=== PATIENT | male | born 1955 | race Caucasian/White ===

== ENCOUNTER 2020-03-04 18:00 | Outpatient (RCR) | payer OTHER, SELFPAY ==
[2019-12-26 08:59] VITALS: PULSE 79; RESP 14; TEMP 37; O2SAT 98
--- NOTE | 2019-12-26 09:09 | PCCPR ---
Molina has h/o some low back discomfort he believes arthritis to L3-5. He wears a supportive brace when walking longer distances or standing. He does not have that with him today and currently no pain.
[2019-12-26 09:51] VITALS: PULSE 79
--- NOTE | 2019-12-26 09:52 | PCCPR ---
Hands itching on orientation Molina arrived 0800 discussing with out Clinical coordinator his hands were feeling a little itchy. His ACTOS was recently substituted with a different chemical compound. He has several allergies. He reported to his PCP. During orientation his eye lids looked a little puffy.
[2020-02-28 19:18] LABS: Glucose Point of Care 121 (65-105)
== END 2020-03-18 15:37 | disposition home or self-care (01) ==
LOC: ANHCPREHAB 18:00
DX: Z95.5 Presence of coronary angioplasty implant and graft (principal)
CPT/HCPCS: 93798

== ENCOUNTER 2021-04-23 00:36 | Day surgery (SDC) | payer OTHER, SELFPAY ==
[2021-04-14 14:47] VITALS: BMI 27.3
[2021-04-23 08:27] VITALS: BP 124/74; PULSE 73; RESP 20; TEMP 36.2; O2SAT 97
--- NOTE | 2021-04-23 08:31 | WPDHPUPDATE1 ---
History and Physical Update Update Date/Time: 04/23/21 08:31 History and Physical has been reviewed, including an updated exam of the patient. There are NO changes in the patient's condition. Risks, benefits, and alternatives have been discussed and questions answered. Patient agrees to proceed with procedure.
[2021-04-23] MEDS: LACTATED RINGERS 1,000 ML 150 ML IV CONT (08:40)
--- NOTE | 2021-04-23 08:43 | WPDANESEPPF ---
Anes - Initial Pre Proc Eval Procedure: Operation Date: 04/23/21 09:00 Proposed Procedures p Esophagogastroduodenoscopy - Richard Ayers MD Date/Time: 04/23/21 08:43 Surgeon: Richard Ayers MD Pre Op Diagnosis: GERD Patient Data Age: 65 Gender: M Height: 1.93 m Weight: 104.9 kg Last Vital Signs Temp 97.1 F L 04/23/21 08:27 Pulse 73 04/23/21 08:27 Resp 20 04/23/21 08:27 BP 124/74 04/23/21 08:27 Pulse Ox 97 04/23/21 08:27 Allergies Allergy/AdvReac Type Severity Reaction Status Date / Time crab Allergy Severe Anaphylactic Verified 04/23/21 08:25 Shock bee venom protein (honey bee) Allergy Intermediate Swelling Verified 04/23/21 08:25 levofloxacin Allergy Intermediate rapid Verified 04/23/21 08:25 heartbeat Contrast Media Allergy Intermediate Hives Uncoded 04/23/21 08:25 Home Medications Medication Instructions Recorded Confirmed Type aspirin [Aspir-81] 81 mg PO DAILY 12/26/19 04/14/21 History clopidogrel 75 mg PO DAILY 12/26/19 04/23/21 History losartan 50 mg PO DAILY 12/26/19 04/14/21 History metoprolol succinate 50 mg PO DAILY 12/26/19 04/14/21 History semaglutide [Ozempic] 1 mg SUBCUT WEEKLY 12/26/19 04/14/21 History empagliflozin 25 mg tablet 25 mg PO DAILY 04/03/21 04/14/21 History ergocalciferol (vitamin D2) 50,000 50,000 unit PO WEEKLY tablet 04/03/21 04/14/21 History unit tablet ezetimibe 10 mg tablet 10 mg PO DAILY 04/03/21 04/14/21 History glimepiride 1 mg tablet 1 mg PO BID 04/03/21 04/14/21 History icosapent ethyl 1 gram capsule 2 g PO BID 04/03/21 04/14/21 History pantoprazole 40 mg tablet,delayed 40 mg PO QAM 04/03/21 04/14/21 History release rosuvastatin 40 mg tablet 40 mg PO DAILY 04/03/21 04/14/21 History tramadol 50 mg tablet 50 mg PO Q6H PRN 04/03/21 04/14/21 History ergocalciferol (vitamin D2) 1,250 mcg PO WEEKLY 04/14/21 04/14/21 History [Vitamin D2] metformin 1,000 mg PO BID 04/14/21 04/14/21 History multivitamin [Men's Multi-Vitamin] 1 tablet PO DAILY 04/14/21 04/14/21 History Patient hx anesthesia problems: none Family hx anesthesia problems: none Results Review: All pre-operative results and documents have been reviewed as part of the pre-operative evaluation. [facility] Past Medical History Medical History (Updated 04/03/21 @ 13:36 by Richard Ayers MD) CAD (coronary artery disease) Diabetes mellitus HTN (hypertension) with goal to be determined Family History Family History Sibling Diabetes mellitus Legal Guardian No problems noted. Father Hypertension Mother Hypertension Social History Social History Smoking status: Never smoker Alcohol intake: former Substance use: never Substance use type: does not use Living arrangements: with family Spiritual care concerns: No Anes - Eval Final PreProcedure Day of Procedure 04/23/21 08:43 Patient weight: overweight Heart: regular rate and rhythm Lungs: clear to auscultation Airway: Mallampati scale class II Neurological: alert and oriented Last oral intake: >/= 8 hours ASA classification: III Emergent: no Anesthetic plan: proceed Anesthesia type and monitoring: general GIVS and standard monitoring Results Review: All pre-operative results and documents have been reviewed as part of the pre-operative evaluation. Informed Consent: The patient's anesthetic plan and its attendant risks and benefits were discussed with the patient/family/POA. Questions were solicited and answers provided to the satisfaction of the patient/family/POA.
[2021-04-23 08:56] VITALS: BP 88/51; PULSE 71; RESP 18; O2SAT 100
[2021-04-23 09:06] VITALS: BP 94/59; PULSE 74; RESP 14; O2SAT 99
[2021-04-23 09:16] VITALS: BP 107/68; PULSE 73; RESP 16; O2SAT 100
== END 2021-04-23 09:24 | disposition home or self-care (01) ==
PROVIDERS: PCP Nurse Practitioner; Visit Provider Internal Medicine Gastroenterology
PROC: 0DJ08ZZ Inspection of Upper Intestinal Tract, Via Natural or Artificial Opening Endoscopic (ICD-10-PCS; CPT 43235; principal; 2021-04-23 09:00)
DX: K21.9 Gastro-esophageal reflux disease without esophagitis (principal); I25.10 Atherosclerotic heart disease of native coronary artery without angina pectoris; I48.20 Chronic atrial fibrillation, unspecified; E11.9 Type 2 diabetes mellitus without complications; I10 Essential (primary) hypertension; Z95.5 Presence of coronary angioplasty implant and graft; Z86.73 Personal history of transient ischemic attack (TIA), and cerebral infarction without residual deficits; Z79.01 Long term (current) use of anticoagulants
CPT/HCPCS: 43239; 88305; J2704; J7120

== ENCOUNTER 2021-12-17 00:08 | Day surgery (SDC) | payer OTHER, SELFPAY ==
[2021-11-27 14:13] VITALS: BMI 29.2
[2021-12-17 06:48] VITALS: BP 111/71; PULSE 67; RESP 16; TEMP 36.2; O2SAT 98; BMI 29.5
[2021-12-17] MEDS: LACTATED RINGERS 1,000 ML 150 ML IV CONT (07:00)
[2021-12-17 07:03] LABS: Glucose Point of Care 154 mg/dl (65-105)
[2021-12-17 07:18] LABS: Glucose Point of Care 136 mg/dl (65-105)
--- NOTE | 2021-12-17 07:32 | SUR.PREOP ---
Reported to Dr. Pritchett that pt had taken his Eliquis yesterday. Per Dr. Pritchett ok to proceed with procedure.
--- NOTE | 2021-12-17 07:53 | WPDANESEPPF ---
Anes - Initial Pre Proc Eval Procedure: Operation Date: 12/17/21 08:00 Proposed Procedures p Colonoscopy - Richard Ayers MD s [facility] Hemorrhoid Treatment - Richard Ayers MD Date/Time: 12/17/21 07:53 Surgeon: Richard Ayers MD Pre Op Diagnosis: hemorrhoids, blood in stool Patient Data Age: 66 Gender: M Height: 1.93 m Weight: 109.8 kg Last Vital Signs Temp 97.2 F L 12/17/21 06:48 Pulse 67 12/17/21 06:48 Resp 16 12/17/21 06:48 BP 111/71 12/17/21 06:48 Pulse Ox 98 12/17/21 06:48 O2 Del Method Room Air 12/17/21 06:48 Allergies Allergy/AdvReac Type Severity Reaction Status Date / Time bee venom protein (honey bee) Allergy Severe Anaphylactic Verified 12/17/21 06:47 Shock crab Allergy Severe Anaphylactic Verified 12/17/21 06:47 Shock levofloxacin Allergy Intermediate rapid Verified 12/17/21 06:47 heartbeat Contrast Media Allergy Severe Anaphylactic Uncoded 12/17/21 06:47 Shock Home Medications Medication Instructions Recorded Confirmed Type aspirin 81 mg tablet,delayed 81 mg PO DAILY 12/26/19 12/17/21 History release (Aspir-) losartan 50 mg tablet 50 mg PO DAILY 12/26/19 12/17/21 History metoprolol succinate 50 mg 50 mg PO DAILY 12/26/19 12/17/21 History tablet,extended release 24 hr semaglutide 0.25 mg or 0.5 mg (2 1 mg subcut WEEKLY 12/26/19 12/17/21 History mg/1.5 mL) subcutaneous pen injector (Ozempic) empagliflozin 25 mg tablet 25 mg PO DAILY 04/03/21 12/17/21 History (Jardiance) ergocalciferol (vitamin D2) 50,000 50,000 unit PO WEEKLY 04/03/21 12/17/21 History unit tablet ezetimibe 10 mg tablet 10 mg PO DAILY 04/03/21 12/17/21 History icosapent ethyl 1 gram capsule 2 g PO BID 04/03/21 12/17/21 History (Vascepa) pantoprazole 40 mg tablet,delayed 40 mg PO QAM 04/03/21 12/17/21 History release (Protonix) rosuvastatin 40 mg tablet 40 mg PO DAILY 04/03/21 12/17/21 History tramadol 50 mg tablet 50 mg PO Q6H PRN Pain 04/03/21 12/17/21 History multivitamin 1 tablet PO DAILY 04/14/21 12/17/21 History apixaban 5 mg tablet (Eliquis) 5 mg PO BID 10/30/21 12/17/21 History albuterol sulfate 90 mcg/actuation 1 puff inhalation Q4H PRN 11/27/21 12/17/21 History aerosol inhaler Shortness Of Breath Or Wheezing gabapentin 300 mg capsule 300 mg PO BID 11/27/21 12/17/21 History glimepiride 2 mg tablet 6 mg PO DAILY 11/27/21 12/17/21 History Laboratory Tests 12/17/21 12/17/21 06:55 07:15 POC Capillary Glucose 154 mg/dl H mg/dl 136 mg/dl H mg/dl (65-105) (65-105) Patient hx anesthesia problems: none Family hx anesthesia problems: none Results Review: All pre-operative results and documents have been reviewed as part of the pre-operative evaluation. [facility] Past Medical History Medical History (Updated 10/30/21 @ 09:11 by Richard Ayers MD) CAD (coronary artery disease) Diabetes mellitus Hemorrhoids with complication HTN (hypertension) with goal to be determined Family History Family History Sibling Diabetes mellitus Legal Guardian No problems noted. Father Hypertension Mother Hypertension Social History Social History Smoking status: Never smoker Alcohol intake: current Substance use: never Substance use type: does not use Living arrangements: with family Spiritual care concerns: No Anes - Eval Final PreProcedure Day of Procedure 12/17/21 07:53 Patient weight: normal Heart: regular rate and rhythm Lungs: clear to auscultation Airway: Mallampati scale class II Neurological: alert and oriented Last oral intake: >/= 8 hours ASA classification: III Emergent: no Anesthetic plan: proceed Anesthesia type and monitoring: general GIVS and standard monitoring Results Review: All pre-operative results and documents have b
--- NOTE | 2021-12-17 08:11 | PM.HPGS ---
History of Present Illness History of Present Illness Consent: Risks, benefits, and alternatives have been discussed and questions answered. Patient agrees to proceed with procedure. Chief complaint: hemorrhoids, blood in stool Narrative: Molina Coats is a 66 year old male here for irc and colonoscopy, almost 2 months of intermittent rectal bleeding after BM, most of the time only scant blood after wiping but one time saw large amount of brb in toilet. Had colonoscopy 2019, only medium size internal hemorrhoids Review of Systems Constitutional: Constitutional: Denies headache(s) and Denies weakness Eyes: Eyes: Denies blurry vision ENT: Reports Normal hearing present, Denies headache(s) and Denies neck pain Cardiovascular: Cardiovascular: Denies chest pain and Denies dyspnea Respiratory: Respiratory: Denies dyspnea Gastrointestinal: Gastrointestinal: Reports no additional gastrointestinal complaints Genitourinary: Genitourinary: Denies dysuria Musculoskeletal: Musculoskeletal: Denies neck pain Integumentary/Breasts: Skin/Breast: Denies dry skin Neurologic: Reports Normal hearing present, Denies headache(s) and Denies weakness Psychiatric: Psychiatric: Denies anxiety Endocrine: Endocrine: Denies change in body appearance Hematologic/Lymphatic: Hematologic/Lymphatic: Denies easy bleeding Allergic/Immunologic: Allergic/Immunologic: Denies urticaria PMFSH Past Medical History Medical History (Updated 12/17/21 @ 08:12 by Richard Ayers MD) CAD (coronary artery disease) Diabetes mellitus Hemorrhoids with complication HTN (hypertension) with goal to be determined Rectal bleeding Family History Family History Sibling Diabetes mellitus Legal Guardian No problems noted. Father Hypertension Mother Hypertension Social History Social History Smoking status: Never smoker Alcohol intake: current Substance use: never Substance use type: does not use Living arrangements: with family Spiritual care concerns: No Meds Home Medications and Allergies Home Medications Medication Instructions Recorded Confirmed Type aspirin 81 mg tablet,delayed 81 mg PO DAILY 12/26/19 12/17/21 History release (Aspir-) losartan 50 mg tablet 50 mg PO DAILY 12/26/19 12/17/21 History metoprolol succinate 50 mg 50 mg PO DAILY 12/26/19 12/17/21 History tablet,extended release 24 hr semaglutide 0.25 mg or 0.5 mg (2 1 mg subcut WEEKLY 12/26/19 12/17/21 History mg/1.5 mL) subcutaneous pen injector (Ozempic) empagliflozin 25 mg tablet 25 mg PO DAILY 04/03/21 12/17/21 History (Jardiance) ergocalciferol (vitamin D2) 50,000 50,000 unit PO WEEKLY 04/03/21 12/17/21 History unit tablet ezetimibe 10 mg tablet 10 mg PO DAILY 04/03/21 12/17/21 History icosapent ethyl 1 gram capsule 2 g PO BID 04/03/21 12/17/21 History (Vascepa) pantoprazole 40 mg tablet,delayed 40 mg PO QAM 04/03/21 12/17/21 History release (Protonix) rosuvastatin 40 mg tablet 40 mg PO DAILY 04/03/21 12/17/21 History tramadol 50 mg tablet 50 mg PO Q6H PRN Pain 04/03/21 12/17/21 History multivitamin 1 tablet PO DAILY 04/14/21 12/17/21 History apixaban 5 mg tablet (Eliquis) 5 mg PO BID 10/30/21 12/17/21 History albuterol sulfate 90 mcg/actuation 1 puff inhalation Q4H PRN 11/27/21 12/17/21 History aerosol inhaler Shortness Of Breath Or Wheezing gabapentin 300 mg capsule 300 mg PO BID 11/27/21 12/17/21 History glimepiride 2 mg tablet 6 mg PO DAILY 11/27/21 12/17/21 History Allergies Allergy/AdvReac Type Severity Reaction Status Date / Time bee venom protein (honey bee) Allergy Severe Anaphylactic Verified 12/17/21 06:47 Shock crab Allergy Severe Anaphylactic Verified 12/17/21 06:47 Shock levofloxacin Allergy Intermediate rapid Verified 12/17/21 06:47 heartbeat Contrast Medi
--- NOTE | 2021-12-17 08:54 | W.PM.PROC2 ---
Procedure Note - Detailed Date of Procedure 12/17/21 Pre-op Diagnosis hemorrhoids, blood in stool Post-op Diagnosis Same Procedure Performed IRC of internal hemorrhoids Surgeon Richard Ayers MD Indications hemorrhoids Findings same Description of Procedure anoscope revealed grade II internal hemorrhoids located at 4-6 o'clock, no fissure, no bleeding. Then I introduced IRC probe and applied to hemorrhoids 1.5 seconds each time x7
[2021-12-17 08:58] VITALS: BP 90/60; PULSE 65; RESP 25; O2SAT 100
[2021-12-17 09:08] VITALS: BP 98/66; PULSE 65; RESP 17; O2SAT 100
[2021-12-17 09:18] VITALS: BP 102/69; PULSE 64; RESP 15; O2SAT 99
== END 2021-12-17 09:22 | disposition home or self-care (01) ==
PROVIDERS: PCP Nurse Practitioner; Visit Provider Internal Medicine Gastroenterology
PROC: 0DJD8ZZ Inspection of Lower Intestinal Tract, Via Natural or Artificial Opening Endoscopic (ICD-10-PCS; CPT 45378; principal; 2021-12-17 08:00)
PROC: (CPT 46930; 2021-12-17 08:00)
DX: Z12.11 Encounter for screening for malignant neoplasm of colon (principal); K64.1 Second degree hemorrhoids; D12.4 Benign neoplasm of descending colon; I25.10 Atherosclerotic heart disease of native coronary artery without angina pectoris; I10 Essential (primary) hypertension; E11.9 Type 2 diabetes mellitus without complications; Z79.82 Long term (current) use of aspirin; Z79.84 Long term (current) use of oral hypoglycemic drugs; Z79.01 Long term (current) use of anticoagulants; Z79.51 Long term (current) use of inhaled steroids
CPT/HCPCS: 46930; 45385; 82948; 88305; J2370; J2704; J7120

== ENCOUNTER 2022-06-20 16:33 | Emergency (ER) | payer OTHER, SELFPAY ==
--- NOTE | ~2022-06-20 | XR_ITS ---
EXAM: XR ankle RT min 3V DATE: 06/20/2022 16:49 HISTORY: injury, pain medial ankle . COMPARISON: None available. FINDINGS: Normal mineralization. No fracture or dislocation. No lytic or blastic lesion. Degenerativ e change at the tibiotalar joint. Achilles and plantar enthesopathy. No erosion or periosteal change. Soft tissues within normal limits. IMPRESSION: No acute osseous finding in the right ankle. Reviewed, dictated and finalized at location K. 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
[2022-06-20 16:48] VITALS: BP 129/87; PULSE 77; RESP 16; TEMP 36.4; O2SAT 98
--- NOTE | 2022-06-20 17:02 | ED.LOWEXIN ---
HPI - Extremity Injury (Lower) General Chief Complaint: Extremity Injury, Lower Stated Complaint: rt foot injury Time Seen by Provider: 06/20/22 16:50 Source: patient Mode of arrival: ambulatory Limitations: no limitations History of Present Illness HPI Narrative: Patient presents today complaining of right ankle pain. He accidentally struck the right medial ankle with a piece of metal at home 1 hour prior to arrival. Pain has improved since the initial injury. Currently rates his pain 3/10. He has applied ice which has helped. He has not tried any [id number] medication for symptoms prior to arrival. Denies numbness or tingling. Related Data Home Medications Medication Instructions Recorded Confirmed aspirin 81 mg tablet,delayed 81 mg PO DAILY 12/26/19 06/20/22 release (Aspir-) losartan 50 mg tablet 50 mg PO DAILY 12/26/19 06/20/22 metoprolol succinate 50 mg 50 mg PO DAILY 12/26/19 06/20/22 tablet,extended release 24 hr empagliflozin 25 mg tablet 25 mg PO DAILY 04/03/21 06/20/22 (Jardiance) ergocalciferol (vitamin D2) 50,000 50,000 unit PO WEEKLY 04/03/21 06/20/22 unit tablet ezetimibe 10 mg tablet 10 mg PO DAILY 04/03/21 06/20/22 icosapent ethyl 1 gram capsule 2 g PO BID 04/03/21 06/20/22 (Vascepa) rosuvastatin 40 mg tablet 40 mg PO DAILY 04/03/21 06/20/22 tramadol 50 mg tablet 50 mg PO Q6H PRN Pain 04/03/21 06/20/22 multivitamin 1 tablet PO DAILY 04/14/21 06/20/22 apixaban 5 mg tablet (Eliquis) 5 mg PO BID 10/30/21 06/20/22 albuterol sulfate 90 mcg/actuation 1 puff inhalation Q4H PRN 11/27/21 06/20/22 aerosol inhaler Shortness Of Breath Or Wheezing gabapentin 300 mg capsule 300 mg PO BID 11/27/21 06/20/22 glimepiride 2 mg tablet 6 mg PO DAILY 11/27/21 06/20/22 Allergies Allergy/AdvReac Type Severity Reaction Status Date / Time bee venom protein (honey bee) Allergy Severe Anaphylactic Verified 06/20/22 16:42 Shock crab Allergy Severe Anaphylactic Verified 06/20/22 16:42 Shock levofloxacin Allergy Intermediate rapid Verified 06/20/22 16:42 heartbeat Contrast Media Allergy Severe Anaphylactic Uncoded 06/20/22 16:42 Shock Review of Systems Review of Systems: CONSTITUTIONAL: Denies body aches, fever, chills, or sweats. EYES: Denies visual changes, redness, or discharge. ENT: Denies rhinorrhea, congestion, sore throat, or otalgia. CARDIOVASCULAR: Denies chest pain, palpitations, or edema. RESPIRATORY: Denies cough or dyspnea. GASTROINTESTINAL: Denies abdominal pain, nausea, vomiting, or diarrhea. GENITOURINARY: Denies dysuria or hematuria. SKIN: Denies rash, itching, or wounds. MUSCULOSKELETAL: Denies back pain, or myalgia.+ right ankle pain NEUROLOGIC: Denies headache, numbness, tingling, or weakness. PSYCH: Denies depression or anxiety. [facility] Past Medical History Medical History CAD (coronary artery disease) Diabetes mellitus Hemorrhoids with complication HTN (hypertension) with goal to be determined Rectal bleeding Family History Family History Sibling Diabetes mellitus Legal Guardian No problems noted. Father Hypertension Mother Hypertension Social History Social History Smoking status: Never smoker Alcohol intake: current Substance use: never Substance use type: does not use Living arrangements: with family Spiritual care concerns: No Comments At time of signature, I have reviewed and agree with nursing past medical, surgical, social and family history unless otherwise noted. Please see nursing chart for further information. There is no relevant family history pertinent to the presenting complaint Exam Narrative: GENERAL: Well-appearing, well-nourished, and in no acute distress. HEAD: Normocephalic, atraumatic. EYES: EOMI. No redness or drainage.
== END 2022-06-20 17:03 | disposition home or self-care (01) ==
PROVIDERS: Emergency Provider Nurse Practitioner; PCP Nurse Practitioner
DX: S90.01XA Contusion of right ankle, initial encounter (principal); W22.8XXA Striking against or struck by other objects, initial encounter; I25.10 Atherosclerotic heart disease of native coronary artery without angina pectoris; E11.9 Type 2 diabetes mellitus without complications; I10 Essential (primary) hypertension; Z79.82 Long term (current) use of aspirin
CPT/HCPCS: 73610; 99213; G0463

== ENCOUNTER 2023-07-06 08:11 | Emergency (ER) | payer BC, SELFPAY ==
--- NOTE | ~2023-07-06 | XR_ITS ---
EXAMINATION: XR hip RT min 2V DATE: 07/06/2023 08:47 INDICATION: Right hip injury and pain. TECHNIQUE: 2 views of right hip were obtained. COMPARISON: None. FINDINGS: Bone alignment is normal. No fracture. There is mild right hip osteoarthritis. IMPRESSION: 1. Mild right hip osteoarthritis. Reviewed, dictated and finalized at location E. [place] WORKER
--- NOTE | 2023-07-06 08:13 | ED.LOWEXIN ---
HPI - Extremity Injury (Lower) General Chief Complaint: Extremity Injury, Lower Stated Complaint: Injured Hip Source: patient and RN notes reviewed Mode of arrival: ambulatory Limitations: no limitations History of Present Illness HPI Narrative: Patient is a 67-year-old male who [facility] with complaints of right hip pain. Patient states that he twisted his hip while turning and to go through a doorway last night. Patient states that he felt a pop as he was twisting. He complains of right hip tenderness. He has difficulty bearing weight on the right leg. However, he has full range of motion of the hip with slight discomfort. Patient states that he had a similar incident occurred 2 years ago where he injured his left IT band. Patient has past medical history coronary artery disease, diabetes, and stroke. He takes Eliquis daily. Related Data Home Medications Medication Instructions Recorded Confirmed aspirin 81 mg tablet,delayed 81 mg PO DAILY 12/26/19 07/06/23 release (Aspir-) losartan 50 mg tablet 50 mg PO DAILY 12/26/19 07/06/23 metoprolol succinate 50 mg 50 mg PO DAILY 12/26/19 07/06/23 tablet,extended release 24 hr empagliflozin 25 mg tablet 25 mg PO DAILY 04/03/21 07/06/23 (Jardiance) ergocalciferol (vitamin D2) 50,000 50,000 unit PO WEEKLY 04/03/21 07/06/23 unit tablet ezetimibe 10 mg tablet 10 mg PO DAILY 04/03/21 07/06/23 icosapent ethyl 1 gram capsule 2 g PO BID 04/03/21 07/06/23 (Vascepa) rosuvastatin 40 mg tablet 40 mg PO DAILY 04/03/21 07/06/23 multivitamin 1 tablet PO DAILY 04/14/21 07/06/23 apixaban 5 mg tablet (Eliquis) 5 mg PO BID 10/30/21 07/06/23 albuterol sulfate 90 mcg/actuation 1 puff inhalation Q4H PRN 11/27/21 07/06/23 aerosol inhaler Shortness Of Breath Or Wheezing gabapentin 300 mg capsule 300 mg PO BID 11/27/21 07/06/23 glimepiride 2 mg tablet 6 mg PO DAILY 11/27/21 07/06/23 epinephrine 0.3 mg/0.3 mL 0.3 mg IM DIRECTED 07/06/23 07/06/23 injection, auto-injector icosapent ethyl 1 gram capsule 1 g PO DIRECTED 07/06/23 07/06/23 (Vascepa) metformin 1,000 mg tablet 1,000 mg PO DIRECTED 07/06/23 07/06/23 tirzepatide 12.5 mg/0.5 mL mg subcut 07/06/23 subcutaneous pen injector (Mounjaro) Allergies Allergy/AdvReac Type Severity Reaction Status Date / Time bee venom protein (honey bee) Allergy Severe Anaphylactic Verified 07/06/23 08:29 Shock crab Allergy Severe Anaphylactic Verified 07/06/23 08:29 Shock levofloxacin Allergy Intermediate rapid Verified 07/06/23 08:29 heartbeat Contrast Media Allergy Severe Anaphylactic Uncoded 07/06/23 08:29 Shock Review of Systems Review of Systems: CONSTITUTIONAL: Denies fever, chills, or sweats. EYES: Denies visual changes, redness, or discharge. ENT: Denies otalgia and sore throat CARDIOVASCULAR: Denies chest pain, palpitations, or edema. RESPIRATORY: Denies cough or dyspnea. GASTROINTESTINAL: Denies abdominal pain, nausea, vomiting, or diarrhea. GENITOURINARY: Denies dysuria or hematuria. SKIN: Denies rash or itching. MUSCULOSKELETAL: Denies back pain or myalgia. Reports right hip pain. NEUROLOGIC: Denies headache, numbness, or weakness. Pertinent positives per HPI. [facility] Past Medical History Medical History CAD (coronary artery disease) Diabetes mellitus Hemorrhoids with complication HTN (hypertension) with goal to be determined Rectal bleeding Family History Family History Sibling Diabetes mellitus Legal Guardian No problems noted. Father Hypertension Mother Hypertension Social History Social History Smoking status: Never smoker Alcohol intake: current Substance use: never Substance use type: does not use Living arrangements: with family Spiritual care concerns: No C
[2023-07-06 08:29] VITALS: BP 110/69; PULSE 79; RESP 16; TEMP 36.4; O2SAT 99
[2023-07-06 08:32] VITALS: BP 110/69; PULSE 79; RESP 16; TEMP 36.4; O2SAT 99
== END 2023-07-06 09:22 | disposition home or self-care (01) ==
PROVIDERS: Emergency Provider Nurse Practitioner; PCP Nurse Practitioner
DX: S73.101A Unspecified sprain of right hip, initial encounter (principal); X50.9XXA Other and unspecified overexertion or strenuous movements or postures, initial encounter; I25.10 Atherosclerotic heart disease of native coronary artery without angina pectoris; E11.9 Type 2 diabetes mellitus without complications; Z79.84 Long term (current) use of oral hypoglycemic drugs; I10 Essential (primary) hypertension; Z86.73 Personal history of transient ischemic attack (TIA), and cerebral infarction without residual deficits; Z79.01 Long term (current) use of anticoagulants; Z79.82 Long term (current) use of aspirin
CPT/HCPCS: 73502; 99213; G0463

== ENCOUNTER 2024-03-16 19:00 | Emergency (ER) | payer BC, SELFPAY ==
--- NOTE | ~2024-03-16 | XR_ITS ---
CHEST RADIOGRAPH, PA AND LATERAL CLINICAL HISTORY: CP . COMPARISON: 03/03/2012 TECHNIQUE: PA and lateral views of the chest. FINDINGS The cardiomediastinal silhouette is unremarkable. The lungs are clear. Visualized osseous structures and soft tissues are unremarkable. IMPRESSION: No focal infiltrate or effusion. Reviewed, dictated and finalized at location A. [employer] WORK[employer]
--- NOTE | 2024-03-16 19:02 | ECG_ITS ---
Test Date: 2024-03-16 19:08:11 Measurements Intervals [place] Rate: 77 P: 31 [place]: 129 QRS: 4 QRSD: 99 T: 35 QT: 378 QTc: 430 Interpretive Statements SINUS RHYTHM WITH FREQUENT VENTRICULAR PREMATURE COMPLEXES INCOMPLETE RIGHT BUNDLE BRANCH BLOCK BASELINE ARTIFACT- I, II, AVR ABNORMAL ECG No previous ECG available for comparison Electronically Signed On 03-16-2024 20:15:49 WIRE LOOP MACHINE OPERATOR by Cy Vivar D.O.
[2024-03-16 19:11] VITALS: BP 180/99; PULSE 80; RESP 17; TEMP 36.2; O2SAT 99
[2024-03-16 19:30] LABS: Basophils Absolute Auto 0.1 K/mm3 (0.0-0.1); Basophils Percent Auto 0.9 % (0.2-1.2); Eosinophils Absolute Auto 0.2 K/mm3 (0-0.3); Eosinophils Percent Auto 2.3 % (0-4.4); Hematocrit 45.1 % (42.0-52.0); Hemoglobin 14.8 g/dL (14.0-18.0); Immature Granulocyte Absolute 0.06 K/mm3 (0.00-0.031); Immature Granulocyte Percent A 0.8 % (0-0.5); Lymphocytes Absolute Auto 3.71 K/mm3 (0.9-3.2); Lymphocytes Percent Auto 46.8 % (18.3-44.2); Mean Corpuscular HGB Conc 32.8 g/dl (32-36); Mean Corpuscular Hemoglobin 30.5 pg (26-34); Mean Platelet Volume 10.1 fl (7.4-10.4); Monocytes Absolute Auto 0.9 K/mm3 (0.1-0.6); Monocytes Percent Auto 10.7 % (2.6-8.5); Neutrophils Absolute Auto 3.1 K/mm3 (1.3-6.7); Neutrophils Percent Auto 38.5 % (45.5-73.1); Platelet Count Result 189 k/mm3 (150-375); Red Blood Count 4.85 M/mm3 (4.6-6.20); Red Cell Distribution Width 13.3 % (11.5-14.5); White Blood Count 7.9 K/mm3 (4.5-10.0)
[2024-03-16 19:40] LABS: Alanine Aminotransferase 33 U/L (6-50); Albumin Level 4.6 g/dL (3.5-5.1); Alkaline Phosphatase 90 U/L (38-126); Anion Gap 9 mmol/L (4-12); Aspartate Amino Transferase 43 U/L (17-59); Bilirubin,Total 0.8 mg/dL (0.2-1.3); Blood Urea Nitrogen 29 mg/dL (9-20); Calcium 9.4 mg/dL (8.4-10.2); Carbon Dioxide 28 mmol/L (22-30); Chloride 98 mmol/L (98-107); Estimated CRCL calculation 107 ml/min; Estimated Glomerular Filt Rate > 60; Glucose 145 mg/dL (65-110); Lipase 181 U/L (23-300); Potassium 3.8 mmol/L (3.4-5.0); Sodium 135 mmol/L (137-145)
[2024-03-16 19:43] LABS: Prothrombin Time 13.6 Seconds (11.1-14.7)
[2024-03-16 19:44] LABS: Partial Thromboplastin Time 27.8 Seconds (22.3-36.8)
[2024-03-16 19:51] LABS: Troponin I < 0.012 ng/mL (0.000-0.034)
[2024-03-16 21:04] VITALS: BP 151/93; PULSE 78; RESP 20; TEMP 36.4; O2SAT 97
[2024-03-16 23:00] VITALS: BP 128/88; PULSE 78; RESP 16; O2SAT 100
[2024-03-16 23:02] LABS: Troponin I < 0.012 ng/mL (0.000-0.034)
--- NOTE | 2024-03-16 23:52 | ED.GENADULT ---
HPI - General Adult General Chief complaint: Chest Pain Stated complaint: irregular heartbeat, CP Time Seen by Provider: 03/16/24 22:14 History of Present Illness HPI narrative: patient is a 60-year-old gentleman presents to the emergency department with chief complaint of chest pain. Patient reports that today was have some discomfort in his chest also had some palpitations. Patient reports he was having some PVCs patient recently was treated with steroids by his dentist after he had a toothache. The patient reports completed the steroid on . Related Data Home Medications Medication Instructions Recorded Confirmed aspirin 81 mg tablet,delayed 81 mg PO DAILY 12/26/19 07/06/23 release (Aspir-) losartan 50 mg tablet 50 mg PO DAILY 12/26/19 07/06/23 metoprolol succinate 50 mg 50 mg PO DAILY 12/26/19 07/06/23 tablet,extended release 24 hr empagliflozin 25 mg tablet 25 mg PO DAILY 04/03/21 07/06/23 (Jardiance) ergocalciferol (vitamin D2) 50,000 50,000 unit PO WEEKLY 04/03/21 07/06/23 unit tablet ezetimibe 10 mg tablet 10 mg PO DAILY 04/03/21 07/06/23 icosapent ethyl 1 gram capsule 2 g PO BID 04/03/21 07/06/23 (Vascepa) rosuvastatin 40 mg tablet 40 mg PO DAILY 04/03/21 07/06/23 multivitamin 1 tablet PO DAILY 04/14/21 07/06/23 apixaban 5 mg tablet (Eliquis) 5 mg PO BID 10/30/21 07/06/23 albuterol sulfate 90 mcg/actuation 1 puff inhalation Q4H PRN 11/27/21 07/06/23 aerosol inhaler Shortness Of Breath Or Wheezing gabapentin 300 mg capsule 300 mg PO BID 11/27/21 07/06/23 glimepiride 2 mg tablet 6 mg PO DAILY 11/27/21 07/06/23 epinephrine 0.3 mg/0.3 mL 0.3 mg IM DIRECTED 07/06/23 07/06/23 injection, auto-injector icosapent ethyl 1 gram capsule 1 g PO DIRECTED 07/06/23 07/06/23 (Vascepa) metformin 1,000 mg tablet 1,000 mg PO DIRECTED 07/06/23 07/06/23 tirzepatide 12.5 mg/0.5 mL mg subcut 07/06/23 subcutaneous pen injector (Saul) Allergies Allergy/AdvReac Type Severity Reaction Status Date / Time bee venom protein (honey bee) Allergy Severe Anaphylactic Verified 03/16/24 19:15 Shock crab Allergy Severe Anaphylactic Verified 03/16/24 19:15 Shock levofloxacin Allergy Intermediate rapid Verified 03/16/24 19:15 heartbeat Contrast Media Allergy Severe Anaphylactic Uncoded 03/16/24 19:15 Shock Review of Systems Review of Systems: A 10 system review of systems was completed on the patient and is negative except for what is stated in the HPI. Nursing and ancillary documentation was reviewed. PMFSH Past Medical History Medical History CAD (coronary artery disease) Diabetes mellitus Hemorrhoids with complication HTN (hypertension) with goal to be determined Rectal bleeding Family History Family History Sibling Diabetes mellitus Legal Guardian No problems noted. Father Hypertension Mother Hypertension Social History Social History Smoking status: Never smoker Alcohol intake: current Substance use: never Substance use type: does not use Living arrangements: with family Spiritual care concerns: No Exam Narrative: GENERAL: Well-appearing, well-nourished, and in no acute distress. HEAD: Normocephalic, atraumatic. EYES: PERRLA and EOMI. ENT: Nares clear, no rhinorrhea or epistaxis. Mucous membranes moist. NECK: Supple. CHEST: Clear to auscultation. No respiratory distress. HEART: Regular rate and rhythm. No murmur heard. Normal peripheral pulses. ABDOMEN: Soft, nontender, nondistended, normal active bowel sounds. EXTREMITIES: Normal range of motion. No edema. SKIN: Warm, dry, no rash. NEURO: No focal deficits. Alert and oriented x3. PSYCH: Normal mood and affect. Course Vital Signs Vital signs: Vital Signs Temperature 36.2 C L 03/16/24 19:11 Pulse Rate 80 03/16/24 19:11 Respiratory Rate 17 03/16/24 19:11 Blood Pressure 180/99 H 03/16/24 19:11 Pulse Oximetry 99 03/16/24 19:11 Oxygen Delivery Room Air 03/16/24 19:11 Temperature 36.4 C 03/16/24 21:04 Pulse Rate 78 03/16/24 23:00 Respiratory Rate 16 03/16/24 23:00 Blood Pressure 128/88 03/16/24 23:00 Pulse Oximetry 100 03/16/24 23:00 Oxygen Delivery Room Air 03/16/24 19:11 Medical Decision Making MDM Narrative Medical decision making narrative: Differential diagnosis includes electrolyte abnormality, ACS, dysrhythmia, chest x-ray showed no focal infiltrate EKG showed no acute ischemic changes initial troponin was -3 hour repeat troponin was negative as well Vital Signs Vital Signs: Vital Signs Temperature 36.2 C L 03/16/24 19:11 Pulse Rate 80 03/16/24 19:11 Respiratory Rate 17 03/16/24 19:11 Blood Pressure 180/99 H 03/16/24 19:11 Pulse Oximetry 99 03/16/24 19:11 Oxygen Delivery Room Air 03/16/24 19:11 Temperature 36.4 C 03/16/24 21:04 Pulse Rate 78 03/16/24 23:00 Respiratory Rate 16 03/16/24 23:00 Blood Pressure 128/88 03/16/24 23:00 Pulse Oximetry 100 03/16/24 23:00 Oxygen Delivery Room Air 03/16/24 19:11 Lab Data 03/16/24 19:21 03/16/24 19:21 Labs: Lab Results 03/16/24 03/16/24 Range/Units 19:21 22:37 WBC 7.9 (4.5-10.0) K/mm3 RBC 4.85 (4.6-6.20) M/mm3 Hgb 14.8 (14.0-18.0) g/dL Hct 45.1 (42.0-52.0) % MCV 93.0 (80-100) fl MCH 30.5 (26-34) pg MCHC 32.8 (32-36) g/dl RDW 13.3 (11.5-14.5) % Plt Count 189 (150-375) k/mm3 MPV 10.1 (7.4-10.4) fl Immature Gran % (Auto) 0.8 H (0-0.5) % Neut % (Auto) 38.5 L (45.5-73.1) % Lymph % (Auto) 46.8 H (18.3-44.2) % [place] % (Auto) 10.7 H (2.6-8.5) % Eos % (Auto) 2.3 (0-4.4) % Baso % (Auto) 0.9 (0.2-1.2) % Lymph # (Auto) 3.71 H (0.9-3.2) K/mm3 [place] # (Auto) 0.9 H (0.1-0.6) K/mm3 Eos # (Auto) 0.2 (0-0.3) K/mm3 Baso # (Auto) 0.1 (0.0-0.1) K/mm3 Abs Immat Gran (auto) 0.06 H (0.00-0.031) K/mm3 Absolute Neuts (auto) 3.1 (1.3-6.7) K/mm3 Absolute Nucleated RBC 0.000 (0.0-0.012) K/mm3 Nucleated RBC % 0.0 (0.0-0.2) % PT 13.6 (11.1-14.7) Seconds INR 1.0 APTT 27.8 (22.3-36.8) Seconds Sodium 135 L (137-145) mmol/L Potassium 3.8 (3.4-5.0) mmol/L Chloride 98 (98-107) mmol/L Carbon Dioxide 28 (22-30) mmol/L Anion Gap 9 (4-12) mmol/L BUN 29 H (9-20) mg/dL Creatinine 0.70 (0.7-1.3) mg/dL Estim Creat Clear Calc 107 ml/min Estimated GFR > 60 (59 - ) Glucose 145 H (65-110) mg/dL Calcium 9.4 (8.4-10.2) mg/dL Total Bilirubin 0.8 (0.2-1.3) mg/dL AST 43 (17-59) U/L ALT 33 (6-50) U/L Alkaline Phosphatase 90 (38-126) U/L Troponin I < 0.012 < 0.012 (0.000-0.034) ng/mL Total Protein 8.0 (6.3-8.2) g/dL Albumin 4.6 (3.5-5.1) g/dL Lipase 181 (23-300) U/L Discharge Plan Discharge Clinical Impression: Atypical chest pain Patient Disposition: Home, Self-Care Condition: Stable Instructions: Antibiotic Form, Chest Pain (ED) Prescriptions: No Action metformin 1,000 mg tablet 1,000 mg PO DIRECTED epinephrine 0.3 mg/0.3 mL auto-injector 0.3 mg IM DIRECTED icosapent ethyl [Vascepa] 1 gram capsule 1 g PO DIRECTED Mounjaro 12.5 mg/0.5 mL pen injector SUBCUT Eliquis 5 mg tablet 5 mg PO BID Jardiance 25 mg tablet 25 mg PO DAILY icosapent ethyl [Vascepa] 1 gram capsule 2 g PO BID ezetimibe 10 mg tablet 10 mg PO DAILY rosuvastatin 40 mg tablet 40 mg PO DAILY ergocalciferol (vitamin D2) 50,000 unit tablet 50,000 unit PO WEEKLY multivitamin [Men's Multi-Vitamin] Tablet 1 tablet PO DAILY glimepiride 2 mg tablet 6 mg PO DAILY gabapentin 300 mg capsule 300 mg PO BID albuterol sulfate 90 mcg/actuation HFA aerosol inhaler 1 puff INHALATION Q4H PRN (Reason: Shortness Of Breath Or Wheezing) losartan 50 mg Tablet 50 mg PO DAILY aspirin [Aspir-81] 81 mg Tablet,Delayed Release (Dr/Ec) 81 mg PO DAILY metoprolol succinate 50 mg Tablet Extended Release 24 Hr 50 mg PO DAILY pantoprazole [Protonix] 40 mg tablet,delayed release (DR/EC) 40 mg PO QAM Qty: 90 3RF Follow-up/Referrals: Olga,YOVANI Morales [Primary Care Provider] - Time of Disposition: 23:54
[2024-03-17] VITALS: BP 130/82; PULSE 81; RESP 16; O2SAT 100
== END 2024-03-17 00:01 | disposition home or self-care (01) ==
PROVIDERS: Emergency Medicine; Emergency Provider Emergency Medicine; PCP Nurse Practitioner
DX: R07.89 Other chest pain (principal); Z79.82 Long term (current) use of aspirin; I25.10 Atherosclerotic heart disease of native coronary artery without angina pectoris; E11.9 Type 2 diabetes mellitus without complications; I10 Essential (primary) hypertension
CPT/HCPCS: 36415; 71046; 80053; 83690; 84484; 85025; 85610; 85730; 93005; 99284